=== PATIENT | female | born 1990 | race American Indian/Alaskan Native ===

== ENCOUNTER 2017-11-03 13:33 | Emergency (ER) | payer SELFPAY ==
[2017-11-03 14:44] VITALS: BP 123/77
[2017-11-03 15:16] LABS: Bilirubin,Urine NEG (Negative); Blood,Urine NEG (Negative); Color,Urine Yellow (Yellow); Protein,Urine <15 mg/dL mg/dL (Negative); Urobilinogen,Urine < 2.0 mg/dL (<2.0); WBC,Urine < 1.0 /HPF (0.0-6.0)
[2017-11-03 15:21] LABS: HCG Qualitative,Urine Negative (Negative)
--- NOTE | 2017-11-03 17:14 | Emergency Department Report ---
Chief Complaint: Urogenital-Female Stated Complaint: ABDOMINAL PAIN Time Seen by Provider: 11/03/17 17:09 - HPI History of Present Illness: Patient reports that she was having sexual activity with her partner last night and the condom broke and she is here to have STD test and an HIV prevention medication. I asked her if her partner has HIV or STD and she said that she asked him and he said he does not. Patient says she does not know for sure if he does so she wants to have tested for possible exposure to HIV. She says she was having some abdominal cramps then when it happened last night and she denies any vaginal discharge at present. Denies any sore throat, fever or chills. Denies any urinary burning, frequency or urgency. Denies any nausea or vomiting. Last menstrual period was 10/17/2017. Patient pain is 0 out of 10 at present. She reported to triage nurse that her pain was 6 out of 10 to a abdomen but that she is not having any abdominal pain she is just wanting to have STD testing and treatment for HIV though her partner told her that he does not have STD or HIV. - ROS Review of Systems: All systems are negative and as stated in HPI above - Exam Vital Signs: Vital Signs 11/03/17 14:40 Temperature 98.7 F Pulse Rate 68 Respiratory 18 Rate Blood Pressure 123/77 O2 Sat by Pulse 100 Oximetry Physical Exam: This is a 26-year-old female well-nourished well-developed in no acute distress. Abdomen: Tender to palpation in all quadrants, no guarding or rebound tenderness. Normal bowel sounds. Lungs: Clear to auscultate bilaterally, no rhonchi wheezes or rales. Psych: Normal mood and behavior MSE screening note: Focused history and physical exam performed. Due to findings the following was ordered: A call [facility] location and they're open until 7:30. I discussed the patient that they can do tested for her and that HIV test that is free at this location. I told her that there is family practice doctor a dislocation also. ED Medical Decision Making - Medical Decision Making ED course: She was screened in emergency room and I discussed to her that she can go do some [facility] to have testing and also to help department. Patient abdominal exam was normal and her vital signs are stable. She is here requesting testing for HIV and for other STD although she is not having any symptoms at present. I encouraged her to call her partner to asked the question regarding STD. I called [facility] and they said that she can come over but when he went interim to speak with patient she had left and raisa reported that she had eloped. ED Disposition for MSE Clinical Impression: Concern about STD in female without diagnosis Disposition: MED SCREENING EXAM-LEFT Is pt being admited?: No Does the pt Need Aspirin: No Condition: Stable
== END 2017-11-03 17:19 | disposition home or self-care (01) ==
LOC: ED 13:33
DX: Z20.2 Contact with and (suspected) exposure to infections with a predominantly sexual mode of transmission (principal); R10.9 Unspecified abdominal pain
CPT/HCPCS: 81001; 81025; 99283